=== PATIENT | male | born 1985 | race American Indian/Alaskan Native ===

== ENCOUNTER 2017-04-13 17:37 | Emergency (ER) | payer OTHER ==
[2017-04-13 17:49] VITALS: BP 113/75; PULSE 87; TEMP 99; BMI 21.2
--- NOTE | 2017-04-13 17:50 | PDOC ---
Rapid Medical Evaluation Time Seen by Provider: 04/13/17 17:48 Medical Evaluation: Allergies Allergy/AdvReac Type Severity Reaction Status Date / Time No Known Allergies Allergy Verified 04/13/17 17:47 04/13/17 17:48 Healthy 31 year old male with fever, cough, and chest "burning" since Wednesday. -T 99.0 (last Tylenol 6am) -Rapid flu -To FT for further evaluation
[2017-04-13] MEDS ORDERED: IBUPROFEN 400 MG TABLET (FP) PO ONE ×2 (19:28→19:39)
--- NOTE | 2017-04-13 19:29 | PDOC ---
History of Present Illness - General Chief Complaint: Respiratory Stated Complaint: FEVER Time Seen by Provider: 04/13/17 17:48 History Source: Patient - History of Present Illness Timing/Duration: reports: yesterday Associated Symptoms: reports: chest pain/soreness, cough, fever/chills Past History - Past Medical History Allergies/Adverse Reactions: Allergies Allergy/AdvReac Type Severity Reaction Status Date / Time No Known Allergies Allergy Verified 04/13/17 17:47 Home Medications: Ambulatory Orders NK [No Known Home Medication] 05/16/15 - Suicide/Smoking/Psychosocial Hx Smoking History: Never smoked Hx Alcohol Use: No Drug/Substance Use Hx: No Substance Use Type: None Review of Systems - Review of Systems Constitutional: Yes: Fever, Malaise Respiratory: Yes: Cough. No: Shortness of Breath, Wheezing *Physical Exam - Vital Signs Last Vital Signs Temp Pulse Resp BP Pulse Ox 99.0 F 87 18 113/75 98 04/13/17 17:47 04/13/17 17:47 04/13/17 17:47 04/13/17 17:47 04/13/17 17:47 - Physical Exam General Appearance: Yes: Appropriately Dressed. No: Apparent Distress HEENT: positive: Normal ENT Inspection, Normal Voice. negative: Scleral Icterus (R), Scleral Icterus (L) Neck: positive: Supple. negative: Lymphadenopathy (R), Lymphadenopathy (L) Respiratory/Chest: positive: Lungs Clear, Normal Breath Sounds. negative: Respiratory Distress Cardiovascular: positive: Regular Rate, S1, S2 Integumentary: positive: Dry, Warm Neurologic: positive: Fully Oriented, Alert, Normal Mood/Affect Medical Decision Making - Medical Decision Making 04/13/17 19:28 31-year-old male, no significant history here with cough with pleuritic chest pain, malaise and subjective fever since yesterday. No headache, ear pain, sore throat, body aches, shortness of breath, vomiting, diarrhea or rash. No known sick contacts. Patient well-appearing and stable with unremarkable exam. Flu swab sent from triage and pending 04/13/17 20:14 Flu negative. DC with supportive treatment *DC/Admit/Observation/Transfer Diagnosis at time of Disposition: Viral syndrome - Discharge Dispostion Disposition: HOME Condition at time of disposition: Good - Referrals Referrals: Marko Harris MD [Primary Care Provider] - - Patient Instructions Printed Discharge Instructions: DI for Viral Syndrome - Post Discharge Activity Forms/Work/School Notes: Back to Work
== END 2017-04-13 20:24 | disposition home or self-care (01) ==
LOC: JERFT 17:37
DX: B34.9 Viral infection, unspecified (principal)
CPT/HCPCS: 87804; 99281-25

== ENCOUNTER 2019-03-26 16:24 | Emergency (ER) | payer BC, OTHER ==
[2019-03-26 16:28] VITALS: BMI 21.6
[2019-03-26] MEDS ORDERED: SODIUM CHLORIDE 1,000 ML IV STA (17:24)
[2019-03-26 18:35] LABS: BASO % 1.1 % (0-2.0); EOS % 1.4 % (0-4.5); HEMATOCRIT 38.2 % (35.4-49); HEMOGLOBIN 12.2 GM/dL (11.7-16.9); LYMPH % 26.7 % (8-40); MCHC 31.8 g/dl (32.0-35.9); MEAN CELL VOLUME 58.1 fl (80-96); MEAN PLT VOLUME 9.8 fl (7.5-11.1); MONO % 6.9 % (3.8-10.2); NEUT % 63.9 % (42.8-82.8); PLATELET COUNT 226 K/MM3 (134-434); RBC 6.58 M/mm3 (4.00-5.60); RDW 16.8 % (11.9-15.9); WHITE BLOOD COUNT 3.8 K/mm3 (4.0-10.0)
[2019-03-26 18:36] LABS: URINE APPEARANCE CLEAR; URINE BILIRUBIN NEGATIVE (NEGATIVE); URINE COLOR YELLOW; URINE GLUCOSE (UA) NEGATIVE (NEGATIVE); URINE KETONE NEGATIVE (NEGATIVE); URINE LEUK ESTERASE NEGATIVE (NEGATIVE); URINE NITRITE NEGATIVE (NEGATIVE); URINE PROTEIN NEGATIVE (NEGATIVE); URINE UROBILINOGEN 0.2 mg/dL (0.2-1.0)
[2019-03-26 18:49] LABS: MCH 18.5 pg (25.7-33.7)
[2019-03-26 19:11] LABS: ALBUMIN 4.7 g/dl (3.4-5.0); BILIRUBIN,TOTAL 0.8 mg/dL (0.2-1); BLOOD UREA NITROGEN 15.4 mg/dL (7-18); CALCIUM 9.6 mg/dL (8.5-10.1); CREATININE 0.8 mg/dL (0.55-1.3); POTASSIUM 4.2 mmol/L (3.5-5.1); TOT PROT 7.4 g/dl (6.4-8.2)
--- NOTE | 2019-03-26 19:27 | PDOC ---
Documentation entered by Alycia Mccain SCRIBE, acting as scribe for Yulia Kennedy MD. Yulia Kennedy MD: This documentation has been prepared by the haibe, Alycia Mccain SCRIBE, under my direction and personally reviewed by me in its entirety. I confirm that the documentation accurately reflects all work, treatment, procedures, and medical decision making performed by me. History of Present Illness - General Chief Complaint: Pain Stated Complaint: RT SIDE PAIN Time Seen by Provider: 03/26/19 17:12 History Source: Patient Exam Limitations: No Limitations - History of Present Illness Initial Comments: 03/26/19 18:08 The patient is a 33-year-old male with no reported past medical history who presents to the emergency department with abdominal pain. The patient presents with intermittent episodes of right lower quadrant pain thats been ongoing for the past 4 months. The patient reports the pain is achy in quality, which isnt aggravated with exertion. The patient reports taking Tylenol for the pain, with relief, however the patient reports pain returns. The patient reports following up with a urologist in the past for the pain. Denies fever, chills, nausea, vomiting, diarrhea, flank pain, back pain, testicular pain. Allergies: NKA PCP: Dr. Harris. Past History - Past Medical History Allergies/Adverse Reactions: Allergies Allergy/AdvReac Type Severity Reaction Status Date / Time No Known Allergies Allergy Verified 03/26/19 16:29 Home Medications: Ambulatory Orders NK [No Known Home Medication] 05/16/15 COPD: No - Psycho Social/Smoking Cessation Hx Smoking History: Never smoked Hx Alcohol Use: No Drug/Substance Use Hx: No Substance Use Type: None Review of Systems - Review of Systems Able to Perform ROS?: Yes Comments:: 03/26/19 18:08 Constitutional - Pt denies Fever, Chills, weakness, HEENT: denies vision changes, sore throat Respiratory: Denies cough, sob, hemoptysis Cardiac: denies chest pain, palpitations, light headedness, leg swelling Abd/GI: +abdominal pain. denies nausea, vomiting, blood per rectum, melena, diarrhea : denies dysuria, frequency, discharge Musculskelatal - denies back pain, joint swelling skin - denies bruising, erythema, rash neurological: denies headache, numbness, focal weakness, tingling, ataxia, weakness hematologic: denies anemia, easy bruising, easy bleeding. *Physical Exam - Vital Signs Last Vital Signs Temp Pulse Resp BP Pulse Ox 98.2 F 70 18 131/83 99 03/26/19 16:27 03/26/19 16:27 03/26/19 16:27 03/26/19 16:27 03/26/19 16:27 - Physical Exam 03/26/19 18:42 GENERAL: Well-appearing, well-nourished. No apparent distress. HEENT: Normocephalic, atraumatic. PERRL, EOM intact. CARDIOVASCULAR: Normal S1, S2. Regular rate and rhythm. PULMONARY: Clear to auscultation bilaterally. ABDOMEN: +RLQ pain. Soft, non-distended. EXTREMITIES: Normal ROM in all four extremities. No gross deformities. SKIN: Warm, dry. No rash NEUROLOGICAL: No focal neurological deficits. ED Treatment Course - LABORATORY CBC & Chemistry Diagram: 03/26/19 17:30 03/26/19 17:30 - ADDITIONAL ORDERS Additional order review: Laboratory Results 03/26/19 03/26/19 17:30 17:20 Sodium 138 Potassium 4.2 Chloride 106 Carbon Dioxide 27 Anion Gap 5 L BUN 15.4 Creatinine 0.8 Est GFR (CKD-EPI)AfAm 134.14 Est GFR (CKD-EPI)NonAf 115.74 Random Glucose 93 Calcium 9.6 Total Bilirubin 0.8 AST 17 ALT 32 Alkaline Phosphatase 90 Total Protein 7.4 Albumin 4.7 Urine Color Yellow Urine Appearance Clear Urine pH 6.0 Ur Specific Tyner 1.018 Urine Protein Negative Urine Glucose (UA) Negative Urine Ketones Negative Urine Blood Negative Urine Nitrite Negative Urine Bilirubin Negative Urine Urobilinogen 0.2 Ur Leukocyte Esterase Negative 03/26/19 17:30 RBC 6.58 H MCV 58.1 L MCHC 31.8 L RDW 16.8 H MPV 9.8 Neutrophils % 63.9 Lymphocytes % 26.7 Monocytes % 6.9 Eosinophils % 1.4 Basophils % 1.1 - RADIOLOGY Radiology Studies Ordered: Category Date Time Status ABDOMEN & PELVIS CT WITH CONTR [CT] Stat CT Scan 03/26/19 19:23 Ordered - Medications Given in the ED: ED Medications Discontinued Medications Generic Name Dose Route Start Last Admin Trade Name Freq PRN Reason Stop Dose Admin Sodium Chloride 1,000 mls @ 1,000 mls/hr 03/26/19 17:24 03/26/19 17:40 Normal Saline - IV 03/26/19 18:23 1,000 mls/hr ASDIR STA Administration Medical Decision Making - Medical Decision Making 03/26/19 19:27 33-year-old male presents with right lower abdominal pain that has been intermittent for several months He did see a urologist but there were no significant findings He he denies any testicular pain or dysuria or hematuria PCP is Dr. Hraris 03/26/19 22:46 Labs were reviewed chemistries are unremarkable Urine is unremarkable CBC shows a mild leukopenia 3.8 CAT scan of the abdomen pelvis with contrast there is a 3 mm hypodensity in the liver which is too small to adequately characterize The pancreas, gallbladder, adrenal glands and spleen are unremarkable There is a left renal cyst, no renal urinary calculi No AAA No evidence of diverticulitis no evidence of small bowel obstruction or free air or free fluid Normal appendix no acute findings There is a nonspecific sclerotic lesion in the left femoral neck Patient does do both sports and also works out at the gym Impression patient has had intermittent right lower pain for the past several months Impression musculoskeletal strain Patient does workout on a regular basis and states that the pain goes away if he takes OTC meds 03/26/19 23:00 Discharge - Discharge Information Problems reviewed: Yes Clinical Impression/Diagnosis: Abdominal pain, RLQ (right lower quadrant) Condition: Stable Disposition: HOME - Admission No - Follow up/Referral Referrals: Marko Harris MD [Primary Care Provider] - - Patient Discharge Instructions Patient Printed Discharge Instructions: DI for Abdominal Pain-Adult Additional Instructions: Please follow-up with your primary medical doctor - Post Discharge Activity
[2019-03-26 20:26] LABS: ANISOCYTOSIS 1+; MACROCYTOSIS 1+; OVALOCYTE 1+; PLATELET ESTIMATE ADEQUATE; TEAR DROP CELLS 1+
[2019-03-26 22:57] VITALS: TEMP 97.7
[2019-03-26 23:00] VITALS: BP 129/76; PULSE 68
== END 2019-03-26 23:11 | disposition home or self-care (01) ==
LOC: SUPCPDRO 16:24 → JER 16:24
PROC: 3E0337Z Introduction of Electrolytic and Water Balance Substance into Peripheral Vein, Percutaneous Approach (ICD-10-PCS; principal; 2019-03-26)
DX: R10.31 Right lower quadrant pain (principal)
CPT/HCPCS: 36415; 74177-TC; 80053; 81003; 85025; 99284-25; J7030; Q9967

== ENCOUNTER 2019-11-01 08:08 | Day surgery (SDC) | payer BC ==
[2019-10-27 08:53] VITALS: BMI 21.4
[2019-11-01] MEDS ORDERED: LIDOCAINE HCL 2% (20ML MULTI-DOSE VIAL) ONE (09:43)
[2019-11-01] MEDS ORDERED: BUPIVACAINE HCL/PF 0.25% (2.5MG/ML) 10 ML VIAL ONE (09:43)
[2019-11-01] MEDS ORDERED: BUPIVACAINE HCL/PF 0.5% (5MG/ML) 10 ML VIAL ONE (09:44)
[2019-11-01] MEDS ORDERED: MIDAZOLAM HCL 2 MG/2 ML SINGLE DOSE VIAL ONE (09:55)
[2019-11-01] MEDS ORDERED: ONDANSETRON 4 MG/2 ML VIAL ONE (09:55)
[2019-11-01] MEDS ORDERED: PROPOFOL 20 ML ONE (09:55)
[2019-11-01] MEDS ORDERED: DEXAMETHASONE SOD PHOSPHATE 4 MG/1 ML VIAL ONE (09:55)
[2019-11-01] MEDS ORDERED: KETOROLAC TROMETHAMINE 30 MG/1 ML VIAL ONE (09:57)
[2019-11-01] MEDS ORDERED: ceFAZolin SODIUM 1 GM VIAL ONE (10:34)
[2019-11-01] MEDS ORDERED: BUPIVACAINE HCL/PF 0.25% (2.5MG/ML) 10 ML VIAL IJ ONE (11:35)
--- NOTE | 2019-11-01 12:24 | OP ---
DATE OF OPERATION: 11/01/2019 PREOPERATIVE DIAGNOSES: 1. Left thumb interphalangeal joint intraarticular fracture of phalanx. 2. Left thumb mallet finger. POSTOPERATIVE DIAGNOSES: 1. Left thumb interphalangeal joint intraarticular fracture of phalanx. 2. Left thumb mallet finger. OPERATIVE PROCEDURE: 1. Open reduction internal fixation of left thumb intraarticular interphalangeal joint fracture. 2. Open treatment of left thumb mallet finger. SURGEON: Andrey Alfonso MD [employer]ER: ANISH Cerrato ANESTHESIA: General. COMPLICATIONS: None. ESTIMATED BLOOD LOSS: Minimal. INDICATIONS FOR PROCEDURE: This is a 34-year-old male with the above finding, indicated for operative treatment. Risks, benefits and alternatives were discussed with him at length and proper informed consent was obtained. PROCEDURE: After proper identification of patient and correct operative site, patient was brought to the operating room, placed supine on the table, prominences well padded. General anesthesia was given. Intravenous antibiotics were given. Timeout procedure was performed. Left upper extremity was prepped and draped in the usual sterile fashion. A well-padded tourniquet was placed over the sterile prep, Esmarch bandage to exsanguinate left upper extremity. Tourniquet was inflated to 250 mmHg. An H-shaped incision was made over the dorsal aspect of the thumb interphalangeal joint. Incision was taken sharply through the skin with blunt dissection through the subcutaneous tissues. Flaps were elevated off of the extensor mechanism and the nail matrix was carefully protected. A complete rupture of the extensor mechanism was noted and a large intraarticular fracture of the distal phalanx was noted. This was freed of soft tissue. The articular surface of the fracture measured approximately 50% of the articular surface. Bony edges were debrided for repair and the fracture was approximated and tentatively held with 2 K-wires. Satisfactory reduction was achieved and these K-wires were replaced with 1.0-mm Synthes modular hand screws which provided secure stable fixation of the fracture in a satisfactory position. The extensor mechanism was then repaired using interrupted sutures and the skin was repaired with 5-0 fast-absorbing plain gut suture as well as Dermabond. Sterile dressings were applied. X-rays were taken confirming proper placement and size of all hardware as well as reduction of the fracture. Sterile dressings and a splint were placed. Patient was reversed from anesthesia, brought to recovery room in stable condition. He tolerated the procedure well. Juan Bo, the assistant editor, was integral throughout the procedure. He was integral in holding reduction while screws were placed and this could not have been done without a skilled operative assistant editor. ANDREY ALFONSO M.D. [id number]
[2019-11-01] MEDS ORDERED: ONDANSETRON 4 MG/2 ML VIAL IVPUSH PRN (12:29)
[2019-11-01] MEDS ORDERED: oxyCODONE HCL 5 MG TABLET PO PRN ×2 (12:29)
[2019-11-01] MEDS ORDERED: LACTATED RINGERS SOLUTION 1,000 ML IV SCH (12:30)
[2019-11-01 13:10] VITALS: TEMP 98
[2019-11-01 14:52] VITALS: BP 116/72; PULSE 68
== END 2019-11-01 14:55 | disposition home or self-care (01) ==
LOC: FASU 08:08
PROVIDERS: ATTEND Orthopaedic Surgery Hand Surgery
PROC: 0LQ80ZZ Repair Left Hand Tendon, Open Approach (ICD-10-PCS; 2019-11-01)
PROC: 0PSS04Z Reposition Left Thumb Phalanx with Internal Fixation Device, Open Approach (ICD-10-PCS; principal; 2019-11-01 10:38)
DX: S62.522A Displaced fracture of distal phalanx of left thumb, initial encounter for closed fracture (principal); M20.012 Mallet finger of left finger(s); X58.XXXA Exposure to other specified factors, initial encounter; Y93.9 Activity, unspecified; Y92.9 Unspecified place or not applicable
CPT/HCPCS: 73140-TC-LT-FY; 94760